=== PATIENT | male | born 1945 | race Caucasian/White ===

== ENCOUNTER 2021-10-10 07:05 | Emergency (ER) | payer OTHER, BC ==
[2021-10-10 07:34] VITALS: BP 134/76; PULSE 72; TEMP 98; BMI 20.9
== END 2021-10-10 09:42 | disposition home or self-care (01) ==
LOC: FER 07:05
DX: M25.511 Pain in right shoulder (principal)
CPT/HCPCS: 73030-TC-RT-FY; 73060-TC-RT-FY; 73070-TC-RT-FY; 99285-25